=== PATIENT | female | born 1975 | race Caucasian/White ===

== ENCOUNTER 2023-03-29 04:21 | Day surgery (SDC) | payer BC ==
[2023-03-29] MEDS: Alum Hydrox/Mag Hydrox/Simeth 30 ML, Lidocaine 2% 15 ML PO ONE (04:54)
[2023-03-29 04:56] LABS: APPEARANCE,URINE CLEAR (Clear); BILIRUBIN,URINE NEGATIVE (Negative); COLOR,URINE YELLOW (Yellow); GLUCOSE,URINE NEGATIVE (Negative); KETONES,URINE NEGATIVE (Negative); LEUKOCYTE ESTERASE,URINE NEGATIVE (Negative); NITRITE,URINE NEGATIVE (Negative); OCCULT BLOOD,URINE 2+ (Negative); PROTEIN,URINE NEGATIVE (Negative); UROBILINOGEN,URINE 0.2 (0.2-1.0)
[2023-03-29 05:05] LABS: EPITHELIAL CELLS,URINE 0-5 /hpf (0-5); RBC,URINE 0-5 /hpf (0-5); WBC,URINE 0-5 /hpf (0-5)
[2023-03-29 05:06] LABS: BACTERIA,URINE FEW /hpf (FEW); MUCUS,URINE FEW /hpf (FEW)
[2023-03-29 05:34] LABS: ANION GAP 14.1 (5-15); BLOOD UREA NITROGEN,BUN 17 mg/dL (7-18); BUN/CREATININE RATIO 24.3 (14-18); CARBON DIOXIDE,CO2 24 mEq/L (21-32); CHLORIDE,CL 102 mEq/L (98-107); CREATININE 0.7 mg/dL (0.55-1.02); GLUCOSE RANDOM 122 mg/dL (70-99); POTASSIUM,K 4.1 mEq/L (3.5-5.1); SODIUM,NA 136 mEq/L (136-145)
[2023-03-29 05:35] LABS: A/G RATIO 0.9 (1-2); ALANINE AMINOTRANSFERASE,ALT 25 U/L (14-59); ALBUMIN 3.5 g/dl (3.4-5.0); ALKALINE PHOSPHATASE 71 U/L (46-116); ASPARTATE AMNIOTRANSFERASE,AST 19 U/L (15-37); BILIRUBIN TOTAL 0.9 mg/dL (0.2-1.0); CALCIUM 8.7 mg/dL (8.5-10.1); ESTIMATED GFR 107 mL/min (>60); LIPASE 27 U/L (16-77); PROTEIN TOTAL,TP 7.6 g/dl (6.4-8.2)
[2023-03-29 05:38] LABS: BASOPHILS ABSOLUTE AUTO 0.1 K/mm3 (0.0-0.2); BASOPHILS PERCENT AUTO 1.7 % (0.0-1.0); EOSINOPHILS ABSOLUTE AUTO 0.4 K/mm3 (0.0-0.4); EOSINOPHILS PERCENT AUTO 5.8 % (0.0-6.0); HEMATOCRIT 36.7 % (37.0-47.0); HEMOGLOBIN 12.5 gm/dl (12.0-16.0); IMMATURE GRAN ABSOLUTE AUTO 0.02 K/mm3 (0.00-0.05); IMMATURE GRAN PERCENT AUTO 0.3 % (0.0-0.4); LYMPHOCYTES PERCENT AUTO 31.1 % (24.0-44.0); MEAN CORPUSCULAR HGB CONC 34.1 g/dl (32.0-36.0); MEAN CORPUSCULAR VOLUME 91.1 fl (83.0-99.0); MEAN PLATELET VOLUME 9.1 fl (9.4-12.3); MONOCYTES ABSOLUTE AUTO 0.8 K/mm3 (0.0-0.8); MONOCYTES PERCENT AUTO 11.5 % (0.0-8.0); NEUTROPHILS ABSOLUTE AUTO 3.3 K/mm3 (1.8-7.7); NEUTROPHILS PERCENT AUTO 49.6 % (41.0-71.0); PLATELET COUNT,PLT 328 K/mm3 (150-400); RED BLOOD CELL COUNT 4.03 M/mm3 (4.10-5.30); WHITE BLOOD CELL COUNT,WBC 6.55 K/mm3 (3.9-11.3)
[2023-03-29] MEDS: Iopamidol 612 MG/ML 100 ML Bottle IVPUSH ONE (06:12)
[2023-03-29] MEDS: Pantoprazole 40 MG Vial IVPUSH ONE (06:12)
[2023-03-29] MEDS ORDERED: Propofol 200 MG/20 ML SDV ONE (08:50)
[2023-03-29] MEDS ORDERED: Rocuronium 50 MG/5 ML Vial ONE (08:50)
[2023-03-29] MEDS ORDERED: Lidocaine 1% 6 ML ONE (08:50)
[2023-03-29] MEDS ORDERED: Succinylcholine 200 MG/10 ML MDV ONE (08:50)
[2023-03-29] MEDS ORDERED: fentaNYL 250 MCG/5 ML SDV ONE (08:51)
[2023-03-29] MEDS ORDERED: Midazolam 1 MG/ML 2 ML SDV ONE (08:51)
[2023-03-29] MEDS ORDERED: Ondansetron 4 MG/2 ML SDV ONE (08:51)
[2023-03-29] MEDS ORDERED: Metoclopramide 10 MG/2 ML SDV ONE (08:51)
[2023-03-29] MEDS ORDERED: metroNIDAZOLE/Normal Saline 500 MG in Premix Bag 1 BAG IV ONE (09:23)
[2023-03-29] MEDS: cefTRIAXone 2 GM in Sodium Chloride 0.9% 100 ML IV ONE (10:05)
[2023-03-29] MEDS: Sodium Chloride 0.9% 10 ML Syringe FLUSH PRN (10:06)
[2023-03-29] MEDS: Ondansetron 4 MG/2 ML SDV IVPUSH PRN (10:07)
[2023-03-29] MEDS: Lactated Ringers 1,000 ML IV SCH (11:00)
[2023-03-29] MEDS ORDERED: Lactated Ringers 1,000 ML ONE (11:53)
[2023-03-29] MEDS: Bupivacaine 0.5% 30 ML SDV ONE (11:56)
[2023-03-29] MEDS: Lidocaine 1% 30 ML SDV ONE (11:56)
[2023-03-29] MEDS ORDERED: HYDROmorphone 0.5 MG/0.5 ML Syringe ONE (12:12)
[2023-03-29] MEDS ORDERED: Ketorolac 30 MG/ML SDV ONE (12:13)
[2023-03-29] MEDS ORDERED: Dexamethasone 4 MG/ML 5 ML MDV ONE (12:15)
[2023-03-29] MEDS ORDERED: HYDROmorphone 0.5 MG/0.5 ML Syringe IVPUSH PRN (13:12)
[2023-03-29] MEDS: EPINEPHrine 1 MG/ML SDV ONE (14:33)
[2023-03-29] MEDS: fentaNYL 100 MCG/2 ML SDV IVPUSH PRN (14:36)
== END 2023-03-29 16:30 | disposition home or self-care (01) ==
LOC: JD.ED 04:21 → JD.SDS 09:27
PROVIDERS: ATTEND Student in an Organized Health Care Education/Training Program
DX: K80.12 Calculus of gallbladder with acute and chronic cholecystitis without obstruction (principal)
CPT/HCPCS: 00790; 36415; 74177; 74177-26; 76705; 76705-26; 80053; 81001; 81025; 83690; 83735; 85025; 96374; 96375; 99284; 99285-25; A9270-GY; C9113; J0171; J0330; J0665; J0696; J1100; J1170; J1836; J1885; J2250; J2405; J2704; J2765; J3010; J3490; J7120; Q9967